=== PATIENT | female | born 1945 | race Caucasian/White ===

== ENCOUNTER 2022-03-26 09:09 | Emergency (ER) | payer OTHER, SELFPAY ==
[2022-03-26 09:10] VITALS: BP 151/94; PULSE 74; RESP 12; TEMP 36.2; O2SAT 96; BMI 44.9
[2022-03-26 09:30] VITALS: BP 136/86; PULSE 91; RESP 15; O2SAT 98
--- NOTE | 2022-03-26 09:35 | CRLHL7_ITS ---
For Patients: As a result of the Cures Act, medical imaging exams and procedure reports are released immediately into your electronic medical record. You may view this report before your referring provider. If you have questions, please contact your health care provider. Indication: Difficulty breathing. Technique: Chest 2 views. Comparison: None. Findings/Impression: Cardiovascular and mediastinum: Heart size and vasculature are normal in caliber and appearance. Mediastinum is within normal limits. Lungs and pleural spaces: Mild interstitial prominence likely within normal limits given exam technique. No consolidation. No pleural effusion or pneumothorax. Calcified granuloma in the right lung apex. Bones and soft tissues: No significant findings. Multilevel degenerative disc disease. Dictated by Palmer Velez MD @ 03/26/2022 10:48:20 AM (Electronically Signed)
[2022-03-26 10:00] VITALS: BP 127/79; PULSE 91; RESP 10; O2SAT 96
[2022-03-26 10:04] LABS: Appearance Urine Clear (Clear); Bilirubin Urine Negative (Negative); Blood Urine Negative (Negative); Color Urine Yellow (Yellow); Glucose Urine Negative (Negative); Ketones Urine Negative (Negative); Leukocyte Esterase Urine Negative (Negative); Nitrite Urine Negative (Negative); Protein Urine Negative (Negative); Specific Gravity Urine <= 1.005 (1.000-1.030); Urobilinogen Urine 0.2 (0.2-1.0)
[2022-03-26 10:10] LABS: Lactate* 1.9 mmol/L (0.5-1.9)
[2022-03-26 10:13] LABS: Basophils Absolute Auto 0.04 K/uL (0.00-0.30); Basophils Percent Auto 0.5 % (0.0-3.0); Eosinophils Absolute Auto 0.06 K/uL (0.00-0.50); Eosinophils Percent Auto 0.8 % (0.0-7.0); Hematocrit 41.4 % (33.0-51.0); Hemoglobin* 13.2 gm/dL (12.0-16.0); Immature Granulocytes Abs Auto 0.03 K/uL (0.00-0.30); Lymphocytes Percent Auto 18.6 % (20-44); Mean Corpuscular HGB Conc 32 gm/dL (32-36); Mean Corpuscular Hemoglobin 27 pg (26-34); Mean Corpuscular Volume 84 fL (80-100); Monocytes Percent Auto 5.9 % (0.0-11.0); Neutrophils Percent Auto 73.8 % (42.0-72.0); Platelet Count* 419 K/uL (140-440); RDW Coefficient of Variation % 14.9 % (11.5-15.5); Red Blood Count 4.95 m/uL (4.00-5.20); White Blood Count* 7.78 K/uL (4.50-11.00)
[2022-03-26 10:20] LABS: Bacteria Urine Few; RBC Urine 0-2 (0-2); Squamous Epithelial Cell Urine Few (None-Few)
--- NOTE | 2022-03-26 10:26 | ED.GENADULT ---
HPI - General Adult General Chief complaint: Shortness of Breath/Dyspnea Stated complaint: Difficulty breathing Time Seen by Provider: 03/26/22 09:29 Source: patient Mode of arrival: ambulatory Limitations: no limitations History of Present Illness HPI narrative: 76-year-old female coming in today after an episode of palpitations, shortness of breath and lightheadedness while she was having breakfast today. She was at a restaurant with her friend when all of a sudden she felt very lightheaded, short of breath and that her heart was racing. She thought she was going to pass out she asked that EMS be called and she came here. By the time she arrives her symptoms have resolved. She states that this has been happening multiple times over the last 2 months and that she is currently undergoing workup for this. She had a 28 day clinical research monitor that she just had removed, she has a follow-up appointment with cardiac MRI imaging she says, coming up this next week. She states that over the last 2 months she has felt short of breath on and off. She states that every now she will break out into a sweat in the middle of the day. She denies any weight loss or night sweats. She denies any significant changes in her appetite. She denies abdominal discomfort, diarrhea or constipation. She denies any urinary symptoms such as increased frequency urgency or dysuria. She does not have a headache or neck pain. No blurry vision or changes in her hearing. She generally gets her care at [facility], her daughter told her to come here today because we provide excellent care, unfortunately we do not have any of her records. Her past medical history significant for obstructive sleep apnea, diabetes, obesity, hypertension, paroxysmal atrial fibrillation with chronic anticoagulation therapy. She is on metformin, metoprolol, cardia, Xarelto, pantoprazole. Related Data Allergies Allergy/AdvReac Type Severity Reaction Status Date / Time acetaminophen [From Percocet] AdvReac Unknown Vomiting Verified 03/26/22 09:22 hydrocodone [From Vicodin] AdvReac Unknown Vomiting Verified 03/26/22 09:22 oxycodone [From Percocet] AdvReac Unknown Vomiting Verified 03/26/22 09:22 tramadol AdvReac Unknown Vomiting Verified 03/26/22 09:22 Review of Systems Status of ROS: Reports: 10 or more systems reviewed and unremarkable except as noted in History and below PFSH PFSH Social History Smoking Status: Never smoker How often do you have a drink containing alcohol: never AUDIT-C Alcohol total score: 0 Non-prescribed substance use: denies use Exam Narrative: Exam Narrative: Obese, well-developed patient in no acute distress. Alert and oriented. Answers questions appropriately. Mood and affect are appropriate. Thoughts are goal oriented and rational. No tangential or magical thinking noted. Patient speaks in full sentences without needing to catch their breath. HEENT: Normocephalic atraumatic. Pupils are equally round reactive to light. Extraocular muscles are intact. Conjunctivae are moist without any icterus noted. Moist mucous membranes. Posterior pharynx is normal. Neck is soft without any lymphadenopathy or thyromegaly. No masses are appreciated. Cardiovascular: Heart is regular rate and rhythm S1 and S2 are present without any murmurs. Lungs: Clear to auscultation bilaterally no wheezes rhonchi or rales are appreciated. Patient takes deep breaths without any discomfort. Abdomen: Soft and nontender nondistended with normal bowel sounds. No guarding or rebound. No masses or organomegaly appreciated. Extremities: Bilateral lower extremities are without edema. Normal DP and PT pulses. Skin: Well perfused without any obvious rashes. Const: Vital Signs, click to edit/add: Vital Signs - 24 hr 03/26/22 09:10 Temperature 97.2 F L Pulse Rate [Pulse Oximeter] 74 Respiratory Rate 12 Blood Pressure [Le ft Upper Arm] 151/94 H Pulse Oximetry 96 Oxygen Delivery Me thod Room Air Course Course Hospital Course: IV was established and labs were drawn. Patient proceeded with an EKG which was unremarkable, chest x-ray unremarkable and her labs were unremarkable. She remained asymptomatic while she was here. Vital Signs Vital signs: Initial Vital Signs Temperature 97.2 F L 03/26/22 09:10 Temperature Source Temporal Artery Scan 03/26/22 09:10 Pulse Rate 74 03/26/22 09:10 Pulse Rhythm 03/26/22 09:10 Respiratory Rate 12 03/26/22 09:10 Blood Pressure 151/94 H 03/26/22 09:10 Blood Pressure Mean 113 03/26/22 09:10 Blood Pressure Position Sitting 03/26/22 09:10 Pulse Oximetry 96 03/26/22 09:10 Oxygen Delivery Method 03/26/22 09:10 Vital Signs Temperature 97.2 F L 03/26/22 09:10 Pulse Rate 74 03/26/22 09:10 Respiratory Rate 12 03/26/22 09:10 Blood Pressure 151/94 H 03/26/22 09:10 Pulse Oximetry 96 03/26/22 09:10 Oxygen Delivery Method 03/26/22 09:10 Temperature 97.2 F L 03/26/22 09:10 Pulse Rate 74 03/26/22 09:10 Respiratory Rate 12 03/26/22 09:10 Blood Pressure 151/94 H 03/26/22 09:10 Pulse Oximetry 96 03/26/22 09:10 Oxygen Delivery Method 03/26/22 09:10 Medical Decision Making MDM Narrative Medical decision making narrative: 76-year-old female with repeated episodes of shortness of breath palpitations. Unclear etiology of this but again patient is currently undergoing a workup. We discussed returning to the ER if she feels on safe at home. We discussed continuing with her appointments as scheduled. Patient was agreeable had no other questions. Lab Data Lab results reviewed: Yes I reviewed the patient's lab results Labs: Lab Results 03/26/22 03/26/22 03/26/22 Range/Units 09:35 10:00 10:00 WBC 7.78 (4.50-11.00) K/uL RBC 4.95 (4.00-5.20) m/uL Hgb 13.2 (12.0-16.0) gm/dL Hct 41.4 (33.0-51.0) % MCV 84 (80-100) fL MCH 27 (26-34) pg MCHC 32 (32-36) gm/dL RDW Coeff of Tommy 14.9 (11.5-15.5) % Plt Count 419 (140-440) K/uL Neut % (Auto) 73.8 H (42.0-72.0) % Lymph % (Auto) 18.6 L (20-44) % [place] % (Auto) 5.9 (0.0-11.0) % Eos % (Auto) 0.8 (0.0-7.0) % Baso % (Auto) 0.5 (0.0-3.0) % Neut # (Auto) 5.70 (1.7-7.0) K/uL Lymph # (Auto) 1.40 (0.90-2.90) K/uL [place] # (Auto) 0.50 (0.00-0.90) K/UL Eos # (Auto) 0.06 (0.00-0.50) K/uL Baso # (Auto) 0.04 (0.00-0.30) K/uL Abs Immat Gran (auto) 0.03 (0.00-0.30) K/uL Sodium 139 (135-149) mmol/L Potassium 3.5 L (3.6-5.1) mmol/L Chloride 101 (96-114) mmol/L Carbon Dioxide 27 (20-32) mmol/L BUN 17 (7-30) mg/dL Creatinine 0.6 (0.5-1.5) mg/dL Estimated Creat Clear 43.74 Estimated GFR 94 ml/min Glucose 143 H (60-115) mg/dL Lactate (0.5-1.9) mmol/L Calcium 9.3 (8.4-10.6) mg/dL Total Bilirubin 0.5 (0.1-1.5) mg/dL Direct Bilirubin 0.3 (0.0-0.5) mg/dL AST 23 (12-35) U/L ALT 20 (4-35) U/L Alkaline Phosphatase 93 (40-150) U/L C-Reactive Protein 1.1 H (0.5-1.0) mg/dL Total Protein 8.0 (6.0-8.3) g/dL Albumin 4.5 (3.3-5.0) g/dL Urine Color Yellow (Yellow) Urine Appearance Clear (Clear) Urine pH 6.0 (5.0-8.5) Ur Specific [place] <= 1.005 (1.000-1.030) Urine Protein Negative (Negative) Urine Glucose (UA) Negative (Negative) Urine Ketones Negative (Negative) Urine Blood Negative (Negative) Urine Nitrite Negative (Negative) Urine Bilirubin Negative (Negative) Urine Urobilinogen 0.2 (0.2-1.0) Ur Leukocyte Esterase Negative (Negative) Urine RBC 0-2 (0-2) Urine WBC 2-5 (0-5) Ur Squamous Epith Cells Few (None-Few) Urine Bacteria Few A (None) SARS-CoV-2 (PCR) (Negative) Influenza Type A (PCR) (Negative) Influenza Type B (PCR) (Negative) POC Troponin I (0.01-0.04) ng/ml 03/26/22 03/26/22 03/26/22 Range/Units 10:00 10:00 10:00 WBC (4.50-11.00) K/uL RBC (4.00-5.20) m/uL Hgb (12.0-16.0) gm/dL Hct (33.0-51.0) % MCV (80-100) fL MCH (26-34) pg MCHC (32-36) gm/dL RDW Coeff of Tommy (11.5-15.5) % Plt Count (140-440) K/uL Neut % (Auto) (42.0-72.0) % Lymph % (Auto) (20-44) % [place] % (Auto) (0.0-11.0) % Eos % (Auto) (0.0-7.0) % Baso % (Auto) (0.0-3.0) % Neut # (Auto) (1.7-7.0) K/uL Lymph # (Auto) (0.90-2.90) K/uL [place] # (Auto) (0.00-0.90) K/UL Eos # (Auto) (0.00-0.50) K/uL Baso # (Auto) (0.00-0.30) K/uL Abs Immat Gran (auto) (0.00-0.30) K/uL Sodium (135-149) mmol/L Potassium (3.6-5.1) mmol/L Chloride (96-114) mmol/L Carbon Dioxide (20-32) mmol/L BUN (7-30) mg/dL Creatinine (0.5-1.5) mg/dL Estimated Creat Clear Estimated GFR ml/min Glucose (60-115) mg/dL Lactate 1.9 (0.5-1.9) mmol/L Calcium (8.4-10.6) mg/dL Total Bilirubin (0.1-1.5) mg/dL Direct Bilirubin (0.0-0.5) mg/dL AST (12-35) U/L ALT (4-35) U/L Alkaline Phosphatase (40-150) U/L C-Reactive Protein (0.5-1.0) mg/dL Total Protein (6.0-8.3) g/dL Albumin (3.3-5.0) g/dL Urine Color (Yellow) Urine Appearance (Clear) Urine pH (5.0-8.5) Ur Specific [place] (1.000-1.030) Urine Protein (Negative) Urine Glucose (UA) (Negative) Urine Ketones (Negative) Urine Blood (Negative) Urine Nitrite (Negative) Urine Bilirubin (Negative) Urine Urobilinogen (0.2-1.0) Ur Leukocyte Esterase (Negative) Urine RBC (0-2) Urine WBC (0-5) Ur Squamous Epith Cells (None-Few) Urine Bacteria (None) SARS-CoV-2 (PCR) Negative SARS-CoV-2 (Negative) Influenza Type A (PCR) Negative PCR FLU A (Negative) Influenza Type B (PCR) Negative PCR FLU B (Negative) POC Troponin I 0.00 L (0.01-0.04) ng/ml Imaging Data Chest x-ray: Attestation: I have reviewed the pertinent imaging results. My impression: No acute findings Radiologist's impression: Findings/Impression: Cardiovascular and mediastinum: Heart size and vasculature are normal in caliber and appearance. Mediastinum is within normal limits. Lungs and pleural spaces: Mild interstitial prominence likely within normal limits given exam technique. No consolidation. No pleural effusion or pneumothorax. Calcified granuloma in the right lung apex. Bones and soft tissues: No significant findings. Multilevel degenerative disc disease. ECG Data Attestation: I personally reviewed and interpreted this ECG as follows: (Normal sinus rhythm, pulse 87, incomplete right bundle-branch block) Discharge Plan Discharge Clinical Impression: Shortness of breath, Palpitation Patient Disposition: Home, Self-Care Condition: Stable Additional Instructions: Continue with the workup you are currently getting an your scheduled appointments. Return to the ER if her symptoms return, you develop a fever, chest pain or vomiting. Follow Up/Referrals: Provider,Not a Local [Primary Care Provider] - Stand Alone Forms: [employer] Info Instructions
[2022-03-26 10:27] LABS: Albumin* 4.5 g/dL (3.3-5.0); Chloride* 101 mmol/L (96-114); Sodium* 139 mmol/L (135-149)
[2022-03-26 10:28] LABS: Potassium* 3.5 mmol/L (3.6-5.1)
[2022-03-26 10:29] LABS: Creatinine* 0.6 mg/dL (0.5-1.5); Est. Creatinine Clearance* 43.74; Estimated Glomerular Filt Rate 94 ml/min
[2022-03-26 10:30] VITALS: BP 125/74; PULSE 84; RESP 14; O2SAT 96
[2022-03-26 10:30] LABS: Alanine Aminotransferase* 20 U/L (4-35); Alkaline Phosphatase* 93 U/L (40-150); Aspartate Amino Transferase* 23 U/L (12-35); Bilirubin Direct* 0.3 mg/dL (0.0-0.5); Bilirubin Total* 0.5 mg/dL (0.1-1.5); Blood Urea Nitrogen* 17 mg/dL (7-30); Carbon Dioxide* 27 mmol/L (20-32)
[2022-03-26 10:31] LABS: Calcium* 9.3 mg/dL (8.4-10.6); Glucose* 143 mg/dL (60-115)
[2022-03-26 10:33] LABS: C Reactive Protein* 1.1 mg/dL (0.5-1.0)
[2022-03-26 10:51] LABS: PCR FLU A Negative PCR FLU A (Negative); PCR FLU B Negative PCR FLU B (Negative)
[2022-03-26 11:00] VITALS: BP 127/89; PULSE 90; RESP 16; O2SAT 96
[2022-03-26 11:09] LABS: SARS PCR* Negative SARS-CoV-2 (Negative)
[2022-03-26 11:30] VITALS: BP 122/78; PULSE 76; RESP 12; O2SAT 96
[2022-03-26 15:02] LABS: Slide Review Reflex No
== END 2022-03-26 12:18 | disposition home or self-care (01) ==
PROVIDERS: Emergency Provider Family Medicine
DX: R06.02 Shortness of breath (principal); R00.2 Palpitations; Z13.89 Encounter for screening for other disorder; R39.9 Unspecified symptoms and signs involving the genitourinary system
CPT/HCPCS: 36415; 71046; 80048; 80076; 81001; 83605; 84484; 85025; 86140; 87086; 87186; 87631; 93005; 99284